=== PATIENT | female | born 1995 | race Two or more races ===

== ENCOUNTER 2021-06-13 09:07 | Outpatient (CLI) | payer MEDICAID ==
[2021-06-13 09:51] LABS: Urine Bacteria FEW /hpf (None Seen); Urine Blood Negative /uL (Negative); Urine Specific Gravity 1.008 (1.001-1.035); Urine WBC 1 /hpf (0 - 5)
[2021-06-13 10:06] LABS: Alcohol, Urine < 3.0 mg/dL (0-10); Amphetamine Screen, Urine NEGATIVE (NEGATIVE); Barbiturate Scree,Urine NEGATIVE (NEGATIVE); Benzodiazephine Screen, Urine NEGATIVE (NEGATIVE); Cannabinoid Screen, Urine NEGATIVE (NEGATIVE); Cocaine Screen, Urine NEGATIVE (NEGATIVE); Opiate Scree,Urine NEGATIVE (NEGATIVE); Phencyclidine Screen, Urine NEGATIVE (NEGATIVE)
[2021-06-13 10:16] LABS: Basophils # (auto) 0 10 ^3/uL (0-0.2); Basophils % (auto) 0.4 % (0.0-2.0); Eosinophils # (auto) 0.1 10 ^3/uL (0-0.8); Eosinophils % (auto) 1.6 % (0.0-7.0); Hematocrit 32.3 % (36.0-46.0); Hemoglobin 11.1 g/dL (12.2-16.2); Lymphocytes # (auto) 1.3 10 ^3/uL (0.4-5.4); Lymphocytes % (auto) 18.9 % (10.0-50.0); Mean Corpuscular Hemoglobin 27.7 pg (28.0-32.0); Mean Corpuscular Hgb Conc. 34.4 g/dL (32.0-36.0); Mean Corpuscular Volume 80.5 fL (80.0-100.0); Monocytes # (auto) 0.4 10 ^3/uL (0-1.3); Monocytes % (auto) 6.4 % (0.0-12.0); Neutrophils # (auto) 4.9 10 ^3/uL (1.6-8.6); Neutrophils % (auto) 72.7 % (37.0-80.0); Nucleated Red Blood Cells % 0.2 %; Red Blood Cells 4.02 10^6/uL (4.0-5.20); Red Cell Distribution Width 13.7 % (11.8-14.3); White Blood Cell 6.7 10^3/uL (4.4-10.8)
[2021-06-13 10:21] LABS: INR 0.9 (0.9-1.15)
[2021-06-13 10:23] LABS: Albumin 2.5 g/dL (3.4-5.0); Calcium 8.5 mg/dL (8.5-10.1); Potassium 3.5 mmol/L (3.5-5.1)
[2021-06-13 10:29] LABS: BUN/Creatinine Ratio 7.5; Bilirubin, Total 0.6 mg/dL (0.2-1.0); Total Protein 6.1 g/dL (6.4-8.2)
[2021-06-14 08:06] LABS: RPR Non Reactive (Non Reactive)
== END 2021-06-13 10:00 | disposition home or self-care (01) ==
LOC: OB 09:07
PROVIDERS: ATTEND Obstetrics & Gynecology
DX: U07.1 COVID-19 (principal)
CPT/HCPCS: 36415; 80053; 80307; 81001; 85025; 85610; 85730; 86592; C9803; U0003

== ENCOUNTER 2021-06-15 04:21 | Inpatient (IN) | payer MEDICAID ==
[~2021-06-15] VITALS: Ht 165.1 cm; Wt 91.6 kg
[2021-06-15] VITALS (21 sets, daily range): BP systolic 100–126; BP diastolic 47–75
[2021-06-15] MEDS ORDERED: LACTATED RINGER'S 1,000 ML IV ONE (04:45)
[2021-06-15] MEDS ORDERED: METOCLOPRAMIDE HCL 5MG/ml INJ 2ml VIAL IV ONE (04:45)
[2021-06-15] MEDS ORDERED: LACTATED RINGER'S 1,000 ML IV SCH (04:45)
[2021-06-15] MEDS ORDERED: ceFAZolin 1GM/50ML 50 ML IV ONE (04:45)
[2021-06-15] MEDS ORDERED: SODIUM CITR/CITRIC ACID ORAL SOLN 30 ML PO ONE (04:45)
[2021-06-15 05:21] LABS: Basophils # (auto) 0 10 ^3/uL (0-0.2); Basophils % (auto) 0.6 % (0.0-2.0); Eosinophils # (auto) 0.1 10 ^3/uL (0-0.8); Eosinophils % (auto) 1.2 % (0.0-7.0); Hematocrit 33.7 % (36.0-46.0); Hemoglobin 11.4 g/dL (12.2-16.2); Lymphocytes # (auto) 1.7 10 ^3/uL (0.4-5.4); Lymphocytes % (auto) 23.2 % (10.0-50.0); Mean Corpuscular Hemoglobin 27.3 pg (28.0-32.0); Mean Corpuscular Hgb Conc. 33.8 g/dL (32.0-36.0); Mean Corpuscular Volume 80.8 fL (80.0-100.0); Monocytes # (auto) 0.6 10 ^3/uL (0-1.3); Monocytes % (auto) 7.6 % (0.0-12.0); Neutrophils # (auto) 4.9 10 ^3/uL (1.6-8.6); Neutrophils % (auto) 67.4 % (37.0-80.0); Nucleated Red Blood Cells % 0.1 %; Red Blood Cells 4.17 10^6/uL (4.0-5.20); Red Cell Distribution Width 13.5 % (11.8-14.3); White Blood Cell 7.3 10^3/uL (4.4-10.8)
[2021-06-15 05:38] LABS: INR 0.91 (0.9-1.15); Partial Thromboplastin Time 26.1 sec (23.6-33.0)
[2021-06-15 05:47] LABS: Albumin 2.6 g/dL (3.4-5.0); Calcium 8.4 mg/dL (8.5-10.1); Potassium 3.9 mmol/L (3.5-5.1)
[2021-06-15 05:51] LABS: BUN/Creatinine Ratio 8.9; Bilirubin, Total 0.4 mg/dL (0.2-1.0); Total Protein 6.4 g/dL (6.4-8.2)
[2021-06-15 06:00] LABS: Alcohol, Urine < 3.0 mg/dL (0-10); Amphetamine Screen, Urine NEGATIVE (NEGATIVE); Barbiturate Scree,Urine NEGATIVE (NEGATIVE); Benzodiazephine Screen, Urine NEGATIVE (NEGATIVE); Cannabinoid Screen, Urine NEGATIVE (NEGATIVE); Cocaine Screen, Urine NEGATIVE (NEGATIVE); Opiate Scree,Urine NEGATIVE (NEGATIVE); Phencyclidine Screen, Urine NEGATIVE (NEGATIVE)
[2021-06-15] MEDS ORDERED: fentaNYL CITRATE 100 MCG/2 ML VL ONE (06:53)
[2021-06-15] MEDS ORDERED: MORPHINE SULF PF 2 MG/2 ML SYRG ONE (06:57)
[2021-06-15 07:09] LABS: Urine Bacteria NONE SEEN /hpf (None Seen); Urine Blood Negative /uL (Negative); Urine Specific Gravity 1.002 (1.001-1.035); Urine WBC <1 /hpf (0 - 5)
[2021-06-15] MEDS ORDERED: ONDANSETRON HCL 4 MG/2 ML VIAL ONE (08:05)
[2021-06-15] MEDS ORDERED: oxyTOCIN 10 UNIT/ML 10ML VIAL ONE (08:07)
[2021-06-15] MEDS ORDERED: ceFAZolin 1GM/50ML 50 ML IV SCH (08:15)
[2021-06-15] MEDS ORDERED: ONDANSETRON HCL 4 MG/2 ML VIAL IV PRN ×2 (08:15→08:45)
[2021-06-15] MEDS ORDERED: LACT. RINGERS/OXYTOCIN 20UNITS 1,000 ML IV ONE (08:15)
[2021-06-15] MEDS ORDERED: GUM (CHEWING) 1 GUM CHEW CHEW ONE (08:15)
[2021-06-15] MEDS ORDERED: HYDROmorphone HCL 2 MG/ML VL IV PRN ×2 (08:45→16:45)
[2021-06-15] MEDS ORDERED: NALBUPHINE HCL 10 MG/1ml INJECTION SUBCUT ONE (08:45)
[2021-06-15] MEDS ORDERED: ACETAMINOPHEN IV 1000 MG/100ML (10MG/ML) IV PRN (10:30)
[2021-06-15] MEDS: ACETAMINOPHEN IV 1000 MG/100ML (10MG/ML) IV PRN ×2 (11:54→23:37)
[2021-06-15] MEDS ORDERED: PREN1TAB71 OR (14:46)
[2021-06-15] MEDS: ceFAZolin 1GM/50ML 50 ML IV SCH ×2 (16:26→23:59)
[2021-06-15 21:27] LABS: Basophils # (auto) 0 10 ^3/uL (0-0.2); Basophils % (auto) 0.4 % (0.0-2.0); Eosinophils # (auto) 0.1 10 ^3/uL (0-0.8); Eosinophils % (auto) 0.6 % (0.0-7.0); Hematocrit 31.9 % (36.0-46.0); Hemoglobin 10.9 g/dL (12.2-16.2); Lymphocytes # (auto) 1.2 10 ^3/uL (0.4-5.4); Lymphocytes % (auto) 13.2 % (10.0-50.0); Mean Corpuscular Hemoglobin 27.6 pg (28.0-32.0); Mean Corpuscular Hgb Conc. 34.3 g/dL (32.0-36.0); Mean Corpuscular Volume 80.6 fL (80.0-100.0); Monocytes # (auto) 0.6 10 ^3/uL (0-1.3); Monocytes % (auto) 6.2 % (0.0-12.0); Neutrophils # (auto) 7.1 10 ^3/uL (1.6-8.6); Neutrophils % (auto) 79.6 % (37.0-80.0); Nucleated Red Blood Cells % 0.1 %; Red Blood Cells 3.96 10^6/uL (4.0-5.20); Red Cell Distribution Width 13.7 % (11.8-14.3); White Blood Cell 8.9 10^3/uL (4.4-10.8)
[2021-06-16] VITALS (13 sets, daily range): BP systolic 103–121; BP diastolic 56–77
[2021-06-16] MEDS ORDERED: BISACODYL 10 MG RECT SUPP PR PRN (05:15)
[2021-06-16] MEDS ORDERED: HYDROcodone-ACET 5/325MG TAB PO PRN ×2 (05:15)
[2021-06-16] MEDS: SIMETHICONE 80 MG CHEWABLE TABLET PO SCH ×4 (06:15→23:07)
[2021-06-16] MEDS: ceFAZolin 1GM/50ML 50 ML IV SCH (07:45)
[2021-06-16] MEDS: IBUPROFEN 800 MG TAB PO PRN ×2 (07:46→18:19)
[2021-06-16 09:48] LABS: Basophils # (auto) 0 10 ^3/uL (0-0.2); Basophils % (auto) 0.4 % (0.0-2.0); Eosinophils # (auto) 0.1 10 ^3/uL (0-0.8); Eosinophils % (auto) 1.2 % (0.0-7.0); Hematocrit 32.1 % (36.0-46.0); Lymphocytes % (auto) 10.9 % (10.0-50.0); Mean Corpuscular Hemoglobin 27.8 pg (28.0-32.0); Mean Corpuscular Hgb Conc. 34.4 g/dL (32.0-36.0); Mean Corpuscular Volume 80.6 fL (80.0-100.0); Monocytes # (auto) 0.5 10 ^3/uL (0-1.3); Monocytes % (auto) 4.9 % (0.0-12.0); Neutrophils # (auto) 7.7 10 ^3/uL (1.6-8.6); Neutrophils % (auto) 82.6 % (37.0-80.0); Nucleated Red Blood Cells % 0.1 %; Red Blood Cells 3.98 10^6/uL (4.0-5.20); Red Cell Distribution Width 13.5 % (11.8-14.3); White Blood Cell 9.3 10^3/uL (4.4-10.8)
[2021-06-16] MEDS: DOCUSATE SOD 100 MG CAP PO SCH ×2 (12:16→23:07)
[2021-06-16] MEDS ORDERED: HYDR-4902 PO (12:56)
[2021-06-16] MEDS ORDERED: IBUP800T27 PO (12:56)
[2021-06-16] MEDS ORDERED: DOCU-94 PO (12:56)
[2021-06-17] VITALS (7 sets, daily range): BP systolic 106–125; BP diastolic 69–76
[2021-06-17] MEDS: IBUPROFEN 800 MG TAB PO PRN ×3 (02:14→17:50)
[2021-06-17 05:07] LABS: RPR Non Reactive (Non Reactive)
[2021-06-17] MEDS: SIMETHICONE 80 MG CHEWABLE TABLET PO SCH ×4 (05:52→21:58)
[2021-06-17] MEDS: DOCUSATE SOD 100 MG CAP PO SCH ×2 (10:07→21:59)
[2021-06-18] MEDS: IBUPROFEN 800 MG TAB PO PRN (02:58)
[2021-06-18 03:00] VITALS: BP 102/48
[2021-06-18] MEDS: SIMETHICONE 80 MG CHEWABLE TABLET PO SCH (06:00)
[2021-06-18 07:10] VITALS: BP 127/67
== END 2021-06-18 09:24 | disposition home or self-care (01) | DRG 540 ==
LOC: NUR 04:21 → LDRP 04:34
PROVIDERS: ADMIT Obstetrics & Gynecology; ATTEND Obstetrics & Gynecology
PROC: 10D00Z1 Extraction of Products of Conception, Low, Open Approach (ICD-10-PCS; principal; 2021-06-15 07:21)
DX: O99.62 Diseases of the digestive system complicating childbirth (principal); K21.9 Gastro-esophageal reflux disease without esophagitis; O34.211 Maternal care for low transverse scar from previous cesarean delivery; Z37.0 Single live birth; Z3A.39 39 weeks gestation of pregnancy
CPT/HCPCS: 36415; 59025; 80053; 80307; 81001; 85025; 85610; 85730; 86592; 86850; 86900; 86901; 94760; 94762; 96360; 96361; G0378; J0131; J0690; J2405; J2590